=== PATIENT | female | born 2000 | race Caucasian/White ===

== ENCOUNTER 2021-11-02 08:50 | Outpatient (CLI) | payer BC, MEDICAID, SELFPAY ==
[2021-11-02] VITALS (18 sets, daily range): BP systolic 107; BP diastolic 62; PULSE 74–99; O2SAT 89–100; BMI 22.8
[2021-11-02 11:08] LABS: Mucous, Urine 0 SEEN /hpf (<or=2+); Red Blood Cells-Urine 0 SEEN /hpf (0-5)
[2021-11-02 11:09] LABS: Absolute Lymphocyte Count 3.18 X10^3/uL (0.83-4.51); Absolute Neutrophil Count 10.4 X10^3/uL (2.0-7.7); Basophil# 0.04 X10^3/uL; Basophil% 0.3 % (0-1); Eosinophil# 0.16 X10^3/uL; Eosinophils% 1.1 % (0-5); Hematocrit 34.7 % (37-47); Hemoglobin 11.5 g/dL (12.0-15.0); Lymphocyte # 3.18 X10^3/ul (0.83-4.51); Lymphocyte % 21.8 % (19-41); Mean Corp Hgb Conc 33.1 g/dL (32-36); Mean Corpuscular Hgb 26.6 pg (27.0-32.0); Mean Corpuscular Volume 80.3 fL (81-99); Mean Platelet Vol. 9.1 fl (6.2-12.0); Monocyte# 0.75 X10^3/uL; Monocyte% 5.1 % (0-10); NRBC Flagged by Analyzer 0 % (0-5); Neutrophil # 10.36 X10^3/uL (2.7-7.7); Platelet Count 393 K/mm3 (150-450); RBC Distribution Width CV 15.9 % (11.6-14.6); RBC Distribution Width SD 44.5 fl (35.1-43.9); Red Blood Count 4.32 M/mm3 (4.2-5.4); White Blood Count 14.6 K/mm3 (4.4-11.0)
[2021-11-02 11:14] LABS: Color, Urine Yellow (Yellow); Glucose, Dipstick Normal (Normal); Ketone-Dipstick Negative (Negative); Leukocyte Esterase-Dipstick 100 /ul (Negative); Nitrite-Dipstick Negative (Negative); Occult Blood-Urine Negative /ul (Negative); Protein-Dipstick Negative (Negative); Specific Gravity, Urine 1.015 (1.002-1.030); Urine Bilirubin Dipstick Negative (Negative); Urine Clarity Sl. Cloudy (Clear); Urine Urobilinogen Normal (Normal)
[2021-11-02 11:24] LABS: Amphetamine Urine VISTA NEGATIVE (<1000 ng/mL); Barbiturate Urine VISTA NEGATIVE (< 200 ng/mL); Benzodiazepine Urine VISTA NEGATIVE (< 200 ng/mL); Cocaine Urine VISTA NEGATIVE (< 300 ng/mL); Ecstacy Urine VISTA NEGATIVE (< 500 ng/mL); Methadone Urine VISTA NEGATIVE (< 300 ng/mL); PCP Urine VISTA NEGATIVE (< 25 ng/mL); THC Urine VISTA POSITIVE (< 50 ng/mL); Vista UDS pH Range 6
[2021-11-02 11:34] LABS: Bacteria 2+ /hpf (None Seen); Squamous Epithelial Cells - UA 0-5 SEEN /hpf (5-10); White Blood Cells 10-25 SEEN /hpf (0-5)
[2021-11-02 12:11] LABS: Rubella IgG Non-Reactive (Nonreactive); Syphilis Antibodies Non-reactive
[2021-11-02 12:38] LABS: HIV - WCH Non-Reactive (Nonreactive); Hepatitis B Surface Antigen Non-Reactive (Nonreactive); Hepatitis C Antibody Non-Reactive (Nonreactive)
--- NOTE | 2021-11-02 13:10 | OB.TRI.NOTE ---
HPI - General HPI Narrative RAVIN LEDEZMA, is a 21 F who presents or low back pain. she hasn't had any care and came in with low back pain after being admitted for drug rehab with the [facility] program. Patient denies any vaginal bleeding or loss of fluid admits good movement. She had an ultrasound several months ago that showed she was 7 weeks but she is unsure when that date was because she was using at the time. She had come up here from [place]. She has a history of previous . PFSH PFSH Allergy/AdvReac Type Severity Reaction Status Date / Time Penicillins Allergy Rash Verified 11/02/21 09:32 ROS Constitutional Constitutional: Reports systems reviewed and no addt'l complaints, except as documented and as per HPI ENT HEENT: Reports systems reviewed and no addt'l complaints, except as documented Cardiovascular Cardiovascular: Reports systems reviewed and no addt'l complaints, except as documented Respiratory/Chest Respiratory/Chest: Reports systems reviewed and no addt'l complaints, except as documented Gastrointestinal Gastrointestinal: Reports as per HPI Genitourinary Genitourinary: Reports as per HPI Musculoskeletal Musculoskeletal: Reports systems reviewed and no addt'l complaints, except as documented Integumentary Integumentary: Reports systems reviewed and no addt'l complaints, except as documented Neurologic Neurologic: Reports systems reviewed and no addt'l complaints, except as documented Physical Exam Const alert, oriented x3 and no apparent distress HEENT Head and Scalp: normocephalic and atraumatic Neck full ROM and no lymphadenopathy Chest inspection of chest normal Resp normal respiratory effort GI soft to palpation and non-tender GI Narrative: Fundal height 21 to 22 cm. NST FHR Rate Baby A Baseline: 140 Decelerations:: None NST Reactive:: Appropriate for gestational age FHR Category:: Category I Uterine Activity:: No regular Assessment & Plan (1) No care in current : QUALIFIERS: Trimester: second trimester Qualified Code(s): O09.32 - Supervision of with insufficient care, second trimester (2) Unsure of LMP (last menstrual period) as reason for ultrasound scan: COMMENT: limited bedside scan done. fu in office for formal. NOB labs drawn including tox. (3) 21 weeks gestation of : COMMENT: Based on limited bedside ultrasound by this physician. Formal scan unavailable in the hospital for several hours. Plan follow-up with [place] [employer] SERVICE FOOD SERVICE ATTENDANT due to agreement with [facility] organization. (4) Drug abuse during : (5) Back pain affecting : QUALIFIERS: Trimester: second trimester Qualified Code(s): O99.891 - Other specified diseases and conditions complicating ; M54.9 - Dorsalgia, unspecified COMMENT: urine mildly abnormal- macrobid script sent PLAN: see a/p comments Charges/Coding Multi Select Codes Visit Charges Office Visit/Consults: 69480 OV L3 New
[2021-11-02 13:35] LABS: Chlamydia Trachomatis by PCR Negative (Negative); Neisserai gonorrhoeae by PCR Negative (Negative); Probe Check PASS; Sample Adequacy Control PASS; Specimen Processing Control PASS
== END 2021-11-02 23:59 | disposition home or self-care (01) ==
LOC: WPOUT 09:01 → WP 09:02
PROVIDERS: Visit Provider Obstetrics & Gynecology
DX: O09.32 Supervision of pregnancy with insufficient antenatal care, second trimester (principal); O99.891 Other specified diseases and conditions complicating pregnancy; M54.50 Low back pain, unspecified; Z3A.21 21 weeks gestation of pregnancy
CPT/HCPCS: 36415; 59050; 80307; 81001; 85025; 86703; 86762; 86780; 86803; 86850; 86900; 86901; 87077; 87086; 87088; 87186; 87340; 87491; 87591; 99218; G0378

== ENCOUNTER 2021-11-10 05:30 | Outpatient (CLI) | payer BC, MEDICAID, SELFPAY ==
[2021-11-10 05:57] VITALS: BP 122/75; PULSE 94; TEMP 36.7; O2SAT 96
[2021-11-10 06:01] VITALS: BMI 24.7
--- NOTE | 2021-11-10 06:13 | OB.TRI.HP_ITS ---
HPI - General HPI Narrative RAVIN LEDEZMA, is a 21 F who presents for nasuea and vomiting, lower pelvic radiating to lower back. she denies any fevers. she was seen and diagnosed with a uti last week and hasn't taken her antibiotic yet. she denies any vaginal bleeding or contractions. she has a visit scheduled on the with beatrice global marketing coordinator PFS PFS Home Medications cephalexin 500 mg PO Q6 7 Days #28 cap 11/10/21 [Rx Last Taken Unknown] Allergy/AdvReac Type Severity Reaction Status Date / Time Penicillins Allergy Rash Verified 11/10/21 06:01 ROS Constitutional Constitutional: Reports systems reviewed and no addt'l complaints, except as documented Gastrointestinal Gastrointestinal: Reports as per HPI Physical Exam Const alert, oriented x3 and no apparent distress HEENT Head and Scalp: normocephalic and atraumatic Neck full ROM and no lymphadenopathy Chest inspection of chest normal Resp normal respiratory effort GI GI Narrative: no CVA tenderness gravid, abdomen nontender, AGA NST FHR Rate Baby A Baseline: 140 Decelerations:: None NST Reactive:: Yes Uterine Activity:: no regular Assessment & Plan (1) UTI in : COMMENT: 11/02- e coli. didn't take antibiotic. seen in triage again 11/10 for N/V, afebrile without CVA tenderness. given ceftriaxone and script for keflex. (2) Drug abuse during : PLAN: cbc ivfs antiemetics and tylenol given. IV dose of antibiotics started. dc back to 180 afterwards if stable and fu as OP. Charges/Coding Multi Select Codes Visit Charges Office Visit/Consults: 94102 OV L3 Est
[2021-11-10] MEDS: 0.9% Normal Saline 1,000 ML 999 ML IV (06:28)
[2021-11-10] MEDS: Ceftriaxone 1 GM/50 ML BAG IV (06:29)
[2021-11-10 06:30] LABS: Absolute Lymphocyte Count 1.44 X10^3/uL (0.83-4.51); Absolute Neutrophil Count 8.2 X10^3/uL (2.0-7.7); Basophil# 0.02 X10^3/uL; Basophil% 0.2 % (0-1); Eosinophil# 0.04 X10^3/uL; Eosinophils% 0.4 % (0-5); Hemoglobin 10.7 g/dL (12.0-15.0); Lymphocyte # 1.44 X10^3/ul (0.83-4.51); Lymphocyte % 13.9 % (19-41); Mean Corp Hgb Conc 32.4 g/dL (32-36); Mean Corpuscular Hgb 25.8 pg (27.0-32.0); Mean Corpuscular Volume 79.5 fL (81-99); Mean Platelet Vol. 9.1 fl (6.2-12.0); Monocyte# 0.64 X10^3/uL; Monocyte% 6.2 % (0-10); NRBC Flagged by Analyzer 0 % (0-5); Neutrophil # 8.15 X10^3/uL (2.7-7.7); Neutrophil % 78.7 % (47-70); Platelet Count 362 K/mm3 (150-450); RBC Distribution Width CV 16.2 % (11.6-14.6); RBC Distribution Width SD 45.9 fl (35.1-43.9); Red Blood Count 4.15 M/mm3 (4.2-5.4); White Blood Count 10.4 K/mm3 (4.4-11.0)
[2021-11-10 07:56] LABS: Color, Urine Yellow (Yellow); Glucose, Dipstick Normal (Normal); Ketone-Dipstick Negative (Negative); Leukocyte Esterase-Dipstick 500 /ul (Negative); Nitrite-Dipstick Positive (Negative); Occult Blood-Urine 10 /ul (Negative); Protein-Dipstick Negative (Negative); Urine Bilirubin Dipstick Negative (Negative); Urine Clarity Clear (Clear); Urine Urobilinogen Normal (Normal)
== END 2021-11-10 23:59 | disposition home or self-care (01) ==
LOC: WPOUT 05:32 → WP 05:33
PROVIDERS: Visit Provider Obstetrics & Gynecology
DX: O23.40 Unspecified infection of urinary tract in pregnancy, unspecified trimester (principal); F19.19 Other psychoactive substance abuse with unspecified psychoactive substance-induced disorder; O99.320 Drug use complicating pregnancy, unspecified trimester; N39.0 Urinary tract infection, site not specified; Z3A.00 Weeks of gestation of pregnancy not specified
CPT/HCPCS: 36415; 59050; 81002; 85025; 87077; 87086; 87088; 87186; 96365; 99218; J7030; G0378

== ENCOUNTER 2021-11-20 15:08 | Outpatient (CLI) | payer BC, MEDICAID, SELFPAY ==
[2021-11-20 15:45] LABS: Absolute Neutrophil Count 7.2 X10^3/uL (2.0-7.7); Basophil# 0.04 X10^3/uL; Basophil% 0.4 % (0-1); Eosinophil# 0.04 X10^3/uL; Eosinophils% 0.4 % (0-5); Hematocrit 33.3 % (37-47); Hemoglobin 10.7 g/dL (12.0-15.0); Lymphocyte % 30.2 % (19-41); Mean Corp Hgb Conc 32.1 g/dL (32-36); Mean Corpuscular Hgb 24.9 pg (27.0-32.0); Mean Corpuscular Volume 77.6 fL (81-99); Mean Platelet Vol. 9.3 fl (6.2-12.0); Monocyte# 0.55 X10^3/uL; Monocyte% 4.9 % (0-10); NRBC Flagged by Analyzer 0 % (0-5); Neutrophil # 7.16 X10^3/uL (2.7-7.7); Neutrophil % 63.6 % (47-70); Platelet Count 437 K/mm3 (150-450); RBC Distribution Width CV 16.1 % (11.6-14.6); RBC Distribution Width SD 45.2 fl (35.1-43.9); Red Blood Count 4.29 M/mm3 (4.2-5.4); White Blood Count 11.3 K/mm3 (4.4-11.0)
[2021-11-20 16:21] LABS: Amphetamine Urine VISTA NEGATIVE (<1000 ng/mL); Barbiturate Urine VISTA NEGATIVE (< 200 ng/mL); Benzodiazepine Urine VISTA NEGATIVE (< 200 ng/mL); Cocaine Urine VISTA NEGATIVE (< 300 ng/mL); Ecstacy Urine VISTA NEGATIVE (< 500 ng/mL); Methadone Urine VISTA NEGATIVE (< 300 ng/mL); PCP Urine VISTA NEGATIVE (< 25 ng/mL); THC Urine VISTA NEGATIVE (< 50 ng/mL); Vista UDS pH Range 6
[2021-11-21 09:25] LABS: HIV - WCH Non-Reactive (Nonreactive); Hepatitis B Surface Antigen Non-Reactive (Nonreactive); Hepatitis C Antibody Non-Reactive (Nonreactive); Rubella IgG Non-Reactive (Nonreactive); Syphilis Antibodies Non-reactive
[2021-11-22 21:07] LABS: Chlamydia By Nucleic Acid AMP Negative (Negative)
[2021-11-22 21:16] LABS: Gonococcus By Nucleic Acid AMP Negative (Negative)
[2021-11-28 14:43] LABS: HPV Reflexed? NOT INDICATED
== END 2021-11-20 23:59 | disposition home or self-care (01) ==
LOC: WOBLAB 15:11
PROVIDERS: Visit Provider Obstetrics & Gynecology
DX: Z34.82 Encounter for supervision of other normal pregnancy, second trimester (principal)
CPT/HCPCS: 36415; 80307; 85025; 86703; 86762; 86780; 86803; 87086; 87088; 87186; 87340; 87491; 87591; 88175; G0145

== ENCOUNTER 2021-12-18 10:21 | Outpatient (CLI) | payer BC, MEDICAID, SELFPAY ==
[2021-12-18 10:57] LABS: Glucose Challenge Gest 1H 50g 86 mg/dL (70-140)
== END 2021-12-18 23:59 | disposition home or self-care (01) ==
PROVIDERS: Visit Provider Obstetrics & Gynecology
DX: Z34.83 Encounter for supervision of other normal pregnancy, third trimester (principal)
CPT/HCPCS: 36415; 82950; 86850

== ENCOUNTER 2021-12-28 02:15 | Outpatient (CLI) | payer BC, MEDICAID, SELFPAY ==
[2021-12-28] VITALS (34 sets, daily range): BP systolic 82–120; BP diastolic 47–77; PULSE 63–126; RESP 18; TEMP 36.1–37.2; O2SAT 87–100; BMI 24.7
[2021-12-28] MEDS: Betamethasone/Betamethasone 30 MG/5 ML Vial 12 MG IM (03:12)
[2021-12-28 03:20] LABS: Absolute Lymphocyte Count 4.45 X10^3/uL (0.83-4.51); Absolute Neutrophil Count 5.3 X10^3/uL (2.0-7.7); Basophil# 0.06 X10^3/uL; Basophil% 0.6 % (0-1); Eosinophil# 0.15 X10^3/uL; Eosinophils% 1.4 % (0-5); Hematocrit 34.4 % (37-47); Hemoglobin 11.2 g/dL (12.0-15.0); Lymphocyte # 4.45 X10^3/ul (0.83-4.51); Lymphocyte % 41.5 % (19-41); Mean Corp Hgb Conc 32.6 g/dL (32-36); Mean Corpuscular Hgb 25.7 pg (27.0-32.0); Mean Corpuscular Volume 78.9 fL (81-99); Mean Platelet Vol. 9.6 fl (6.2-12.0); Monocyte# 0.72 X10^3/uL; Monocyte% 6.7 % (0-10); NRBC Flagged by Analyzer 0 % (0-5); Neutrophil # 5.31 X10^3/uL (2.7-7.7); Neutrophil % 49.5 % (47-70); Platelet Count 349 K/mm3 (150-450); RBC Distribution Width SD 48.8 fl (35.1-43.9); Red Blood Count 4.36 M/mm3 (4.2-5.4); White Blood Count 10.7 K/mm3 (4.4-11.0)
[2021-12-28 06:29] LABS: Amphetamine Urine VISTA NEGATIVE (<1000 ng/mL); Barbiturate Urine VISTA NEGATIVE (< 200 ng/mL); Benzodiazepine Urine VISTA NEGATIVE (< 200 ng/mL); Cocaine Urine VISTA NEGATIVE (< 300 ng/mL); Ecstacy Urine VISTA NEGATIVE (< 500 ng/mL); Methadone Urine VISTA NEGATIVE (< 300 ng/mL); PCP Urine VISTA NEGATIVE (< 25 ng/mL); THC Urine VISTA NEGATIVE (< 50 ng/mL); Vista UDS pH Range 6
--- NOTE | 2021-12-28 07:18 | PCM.HP.BLA ---
History and Physical Date of Admission: 12/28/21 Chief complaint: Vaginal bleeding History of present illness: 21-year-old G3, P1 at 29 weeks and 3 days with IGNACIO: 03/12/2022 by 23-week ultrasound arrived to triage with vaginal bleeding. Patient noted vaginal bleeding on underwear, called squad. Has had cramping that comes and goes, feels a cramping in her back. Has continued to notice some vaginal bleeding. Denies headache, visual changes, chest pain, shortness of breath, nausea vomiting, right upper quadrant pain. Patient states good movement. is complicated by late care at 23 weeks, heroin use currently living at [address] [place] [address], Rh-, marginal cord insertion Obstetric history: G1: SAB 09/2014 G2: 37-week primary section for IUGR GDM A 04/2019 G3: Current Past medical history: Heroin use Past surgical history: section, tonsils and adenoids Medications: vitamin Allergies: Penicillin Social history: History of heroin abuse, former smoker, denies alcohol use Family history: Denies history DVT or PE Review of systems: Besides above pertinent positives a full review of systems was performed and found to be negative Physical exam: Vitals: Blood pressure 93/53 pulse 78 General: Normal-appearing no acute distress HEENT: Normocephalic atraumatic no cervical of adenopathy Cardiac/respiratory: No use of accessory muscles, nonlabored breathing Abdomen: Soft, nontender, gravid Pelvic exam: Sterile speculum exam reveals no active bleeding, minimal amounts of blood in posterior vault, cervix closed thick and high Extremities: No peripheral edema normal peripheral pulses Psych: Normal affect normal demeanor nonpressured speech Bedside ultrasound: Cephalic, CORNEL within normal limits. No pathology noted Labs: White blood cell count 10.7 hemoglobin 11.2 hematocrit 34.4% platelets 349. Blood type B- antibody positive Assessment plan: 21-year-old G3, P1 at 29 weeks and 3 days arrives with vaginal bleeding. Evaluation within normal limits, cervix closed, no active bleeding. heart tones reassuring, toco quiet. Educated patient on findings, overall status appears to be stable outside of vaginal bleeding with no signs of labor. Concerning for possible chronic abruption needs prolonged monitoring and evaluation. Discussed case with Dr. Brando orellana [facility], agrees needs monitoring, accepted transport. Educated patient on discussion with Dr. Michaels and need for transport, agrees to transport to [facility]. Celestone given, mag for neuro protection started, vancomycin for unknown GBS status with penicillin allergy given. Rh-, recently given RhoGam 1 week prior, 12/17/2021. Patient to be transported to [facility]
[2021-12-28] MEDS: Lactated Ringers 1,000 ML 100 ML IV (07:35)
[2021-12-28] MEDS: Magnesium Sulfate 4gm/100mL 4 GM/100 ML IV.SOLN. IV (07:35)
[2021-12-28] MEDS: Magnesium Sulfate 20 GM/500 ML BAG IV (07:55)
== END 2021-12-28 23:59 | disposition home or self-care (01) ==
LOC: WPOUT 02:21 → WP 02:22
PROVIDERS: Visit Provider Obstetrics & Gynecology
DX: O46.93 Antepartum hemorrhage, unspecified, third trimester (principal); Z87.891 Personal history of nicotine dependence; Z3A.29 29 weeks gestation of pregnancy; Z79.899 Other long term (current) drug therapy
CPT/HCPCS: 96365; 96366; 36415; 59025; 59050; 80307; 85025; 86850; 86870; 86900; 86901; 90384; 96367; 96372; 99218; J7050; J7120; G0378; J0702; J2790

== ENCOUNTER → 2022-01-29 | Outpatient (CLI) | payer BC, MEDICAID, SELFPAY | END | disposition home or self-care (01) | PROVIDERS: Visit Provider Obstetrics & Gynecology | DX: Z11.3 Encounter for screening for infections with a predominantly sexual mode of transmission (principal) ==

== ENCOUNTER → 2022-02-12 | Outpatient (CLI) | payer BC, MEDICAID, SELFPAY | END | disposition home or self-care (01) | LOC: LABSPEC 12:18 | PROVIDERS: Visit Provider Obstetrics & Gynecology | DX: Z36.85 Encounter for antenatal screening for Streptococcus B (principal) | CPT/HCPCS: 87081 ==

== ENCOUNTER 2022-03-05 06:25 | Inpatient (IN) | payer BC, MEDICAID, SELFPAY ==
--- NOTE | 2022-03-04 14:37 | CASEMGMT ---
Social Work Labor and Delivery Late entry for phone call with Celi Del Castillo of [facility] on 02.28.2022: Received call from Celi Del Castillo from [facility] ([phone]) reporting need for notification of delivery of child to be born this admission. [facility] agency is reporting to be otherwise involved with this patient/mother of baby (MOB), for MOB's older child. [facility] has custody of the older child, and [facility] has filed a complaint for custody of infant to be delivered in February 2013. From conversation with [facility], there is concern for some exposure of infant to opiates during , with last admitted use by the MOB of heroin on 10.05.21. History of methamphetamine use as well. MOB reportedly went into a residential program and is now involved in outpatient programming. Per Celi, there is a court hearing on 03.04.2022, so there could be a determination by the supply chain engineer on complaint as early as 03.04.2022. Regardless of court decision on the , [facility] does request to be notified of 's . General update: Let BETTINA Del Castillo know that this business writer does regularly make referrals to children services when substance exposure in utero is known. Also educated BETTINA Del Castillo to hospital protocols for withdrawal monitoring in babies exposed to opiates in utero, is between 3-7 days, depending on type of exposure and when in the exposure occurred. Educated to Eat, Sleep, Console method of monitoring, which puts responsibility on the parents to be present and care for the child during the monitoring phase. Explored with BETTINA Del Castillo as to [facility] stance on MOB involvement with baby, should [facility] indeed received custody of baby. BETTINA Del Castillo reports that based on how MOB is doing now, would be in support of MOB being at hospital with baby for duration of baby's hospital stay, so long as MOB is adhering to rules and protocols of the hospital. Celi can be reached at [phone], and in off hours the on-call center support consultant can be reached via the [facility]'s Department. Note placed in [facility] record on the WP requesting a SW consult at delivery, as consideration for drug screens at delivery. Plan: Social work will follow and assist this MOB and during delivery admission. Collaboration with unit staffing and [facility]. -FILIPE Gilbert, OIL BURNER MECHANIC
[2022-03-05] VITALS (18 sets, daily range): BP systolic 91–116; BP diastolic 50–75; PULSE 71–114; RESP 16–18; TEMP 36.1–37; O2SAT 97–100; BMI 26.7
[2022-03-05] MEDS: Lactated Ringers 1,000 ML 999 ML IV (06:45)
[2022-03-05 07:15] LABS: Absolute Lymphocyte Count 3.58 X10^3/uL (0.83-4.51); Absolute Neutrophil Count 4.4 X10^3/uL (2.0-7.7); Basophil# 0.03 X10^3/uL; Basophil% 0.3 % (0-1); Eosinophil# 0.09 X10^3/uL; Hematocrit 36.4 % (37-47); Hemoglobin 11.8 g/dL (12.0-15.0); Lymphocyte # 3.58 X10^3/ul (0.83-4.51); Lymphocyte % 40.9 % (19-41); Mean Corp Hgb Conc 32.4 g/dL (32-36); Mean Corpuscular Hgb 24.6 pg (27.0-32.0); Mean Corpuscular Volume 75.8 fL (81-99); Mean Platelet Vol. 10.4 fl (6.2-12.0); Monocyte# 0.68 X10^3/uL; Monocyte% 7.8 % (0-10); NRBC Flagged by Analyzer 0 % (0-5); Neutrophil # 4.35 X10^3/uL (2.7-7.7); Neutrophil % 49.7 % (47-70); Platelet Count 294 K/mm3 (150-450); RBC Distribution Width CV 14.1 % (11.6-14.6); RBC Distribution Width SD 38.2 fl (35.1-43.9); White Blood Count 8.8 K/mm3 (4.4-11.0)
[2022-03-05] MEDS: Acetaminophen 500 MG Tablet 1000 MG PO ×3 (07:18→19:57)
[2022-03-05] MEDS: Sodium Citrate/Citric Acid 30 ML UDC PO (07:18)
[2022-03-05 07:25] LABS: BUP Internal Control LINE = VALID (VALID); Buprenorphine Drug Screen Negative (<10 ng/mL)
[2022-03-05 07:37] LABS: Amphetamine Urine VISTA NEGATIVE (<1000 ng/mL); Barbiturate Urine VISTA NEGATIVE (< 200 ng/mL); Benzodiazepine Urine VISTA NEGATIVE (< 200 ng/mL); Cocaine Urine VISTA NEGATIVE (< 300 ng/mL); Ecstacy Urine VISTA NEGATIVE (< 500 ng/mL); Methadone Urine VISTA NEGATIVE (< 300 ng/mL); PCP Urine VISTA NEGATIVE (< 25 ng/mL); THC Urine VISTA NEGATIVE (< 50 ng/mL); Vista UDS pH Range 7
--- NOTE | 2022-03-05 07:43 | PCM.HP.BLA ---
History and Physical Date of Admission: 03/05/22 Chief complaint: Repeat section at term History present illness: 21-year-old G3, P1 at 39 weeks and 0 days with IGNACIO 03/12/2022 arrives for repeat section. Denies headache, visual changes, chest pain, shortness of breath, nausea vomit, right upper quadrant pain. Patient states good movement. is complicated by history of heroin use, history of gestational diabetes, marginal cord insertion, Rh- Obstetrical history: G1: SAB G2: 37-week primary section GDM A G3: Current Past medical history: None Medications: vitamin Past surgical history: Tonsils and adenoids, section Allergies: Penicillin Family history: Denies history DVT or PE Social history: History of heroin use, denies smoking or alcohol use Review of systems: Besides above pertinent positives a full review of systems was performed and found to be negative Physical exam: Blood pressure 116/75 pulse 76 respiratory rate 16 SPO2 98% on room air General: Normal-appearing no acute distress HEENT: Normocephalic atraumatic no cervical of adenopathy Cardiac/respiratory: No use of excess muscles, nonlabored breathing Abdomen: Soft, nontender, gravid Extremities: No peripheral edema normal peripheral pulses Psych: Normal affect normal demeanor nonpressured speech Labs: White blood cell count 8.8, hemoglobin 11.8, hematocrit 36.4%, platelets 294. Assessment plan: 21-year-old G3, P1 at 39 weeks and 0 days for repeat section at term Admit labor and delivery CEFM Rh-: We will evaluate for RhoGAM Routine orders Anesthesia to see
[2022-03-05] MEDS: Lactated Ringers 1,000 ML 150 ML IV (07:45)
[2022-03-05] MEDS: Cefazolin 2 GM in 0.9% Normal Saline 100 ML IV (08:00)
--- NOTE | 2022-03-05 08:39 | OP.PCM_ITS ---
Details Operative Information Date of Procedure: 03/05/22 Pre-Operative Diagnosis: Term, history of section Post-Operative Diagnosis: Term, history of section Findings Description of Procedure: Procedure: Repeat low transverse section Via Pfannenstiel incision Surgeon: Kike Calvin MD Anesthesia: Spinal EBL: 600 cc IV fluids: 800 cc Urine output: 25 cc Complications: None Specimen: None Findings: Female in vertex position Apgars 8/9. Normal uterus, tubes, and ovaries. Consent: Patient arrives with term and history of section need of repeat section Via Pfannenstiel incision. Patient understands risk of the procedure include but are not limited to visceral or vascular injury, prolonged hospitalization, blood loss and need for transfusion, reoperation. Patient stated understanding and wished to proceed. All questions were answered and consent was signed Procedure: Patient was brought back to the OR where spinal anesthesia was found to be adequate. 2 g of Ancef were given for infection prophylaxis. Patient was prepared and draped in a supine position with leftward tilt. A Pfannenstiel incision was made at the skin with a scalpel. The incision was carried down to the fascia with a scalpel. The fascia was excised and extended laterally. Inferior aspect of the fascia was grasped and the underlying rectus and pyrami krystina muscle were dissected off sharply with Benito scissors. In a similar aspect the superior aspect of the fascia was grasped and the underlying rectus muscle was dissected off sharply. Rectus muscle was dissected at the midline down to the level of pubic symphysis. Preperitoneal fatty tissue was noted and peritoneum was entered bluntly. Peritoneum was extended superiorly and inferiorly with good visualization of bladder. Bladder blade was inserted and vesicouterine peritoneum was identified. Low transverse hysterotomy was made. Hand was placed in the incision and gentle fundal pressure was applied once the bladder blade was removed and the head was brought into the incision. Head and shoulders were delivered with ease. Cord was cut and clamped. Baby handed off to nursing. Placenta was delivered via manual extraction. IV oxytocin was initiated in order to facilitate uterine contractions. Uterus was exteriorized and wiped out with dry laparotomy sponge in order to remove remaining placental membranes. Uterus was closed in a continuous running fashion. [id number]'s were used for hemostasis. Good hemostasis was noted. Uterus was placed back in the abdominal cavity and incision was reinspected, good hemostasis was noted. Fascia was closed in a continuous running fashion with PDS. Subcutaneous irrigation was performed, good hemostasis was noted. Skin was closed in subcuticular fashion. All counts were correct x2. Patient tolerated procedure well and was brought to recovery in stable condition.
[2022-03-05] MEDS: Oxytocin 30 units/NS 500 ml 30 UNITS/500 ML IV.SOLN 167 UNITS IV (09:00)
[2022-03-05] MEDS: Ketorolac 30 MG/ML Syringe IV ×3 (10:30→22:17)
[2022-03-05] MEDS: Nalbuphine 10 MG/ML Ampul 5 MG IV (11:26)
[2022-03-05] MEDS: Lactated Ringers 1,000 ML 100 ML IV (12:24)
[2022-03-05] MEDS: DiphenhydrAMINE 25 MG Capsule PO (18:50)
[2022-03-05] MEDS: 0.9% Saline Lock 10 ML Syringe IV ×2 (19:57→22:18)
[2022-03-05] MEDS: Enoxaparin 40 MG/0.4 ML Syringe SC (19:57)
--- NOTE | 2022-03-05 23:20 | NURSING ---
straight cath used to empty bladder. removed after urine done draining.
[2022-03-06] MEDS: Acetaminophen 500 MG Tablet 1000 MG PO ×4 (00:39→20:01)
[2022-03-06 03:05] VITALS: BP 89/47; PULSE 64; RESP 16; TEMP 36.5
[2022-03-06 04:15] VITALS: BP 84/51
[2022-03-06] MEDS: Ketorolac 30 MG/ML Syringe IV (04:55)
[2022-03-06] MEDS: 0.9% Saline Lock 10 ML Syringe IV ×2 (04:55→07:00)
--- NOTE | 2022-03-06 06:10 | NURSING ---
0430 late entry d/t the [facility] downtime. at 0430, this RN called dr bc antonio to update her on pt vital signs and current urine output situation. around 0305, BP 89/47 and this RN went into room an hour later and BP 84/51. pt asymptomatic and pulse within 60s-80s. pt denies feeling dizzy or lightheaded. pt due to get toradol, but pt unable to void. initial kidd cath removed per barrington RN around 1700 03/05. pt unable to void within 6 hours, so straight cath completed at 2315 for 200 cc. pt now unable to void again after another 6 hours. this RN inquiring about whether or not pt needs a fluid bolus, kidd cath placed, and whether or not to administer scheduled toradol dose. [facility] states to place kidd and keep it in for day shift, no bolus needed at this time, and to give toradol if urine is draining adequately. charge master coordinator updated on plan of care.
[2022-03-06] MEDS: Nalbuphine 10 MG/ML Ampul 5 MG IV (06:59)
[2022-03-06 08:25] VITALS: BP 91/55; PULSE 70; RESP 18; TEMP 36.2; O2SAT 100
--- NOTE | 2022-03-06 09:15 | PCM.PN.OB ---
Subjective Subjective Patient without complaints. Tolerating diet well. Positive flatus. Denies any orthostatic changes. Minimal vaginal bleeding reported. Objective Data Objective Data Good urine output with Vaca reinserted due to urinary retention. Hemoglobin 7.1. Vital Signs: Vital Signs Temp Pulse Resp BP Pulse Ox 97.7 F L 64 16 84/51 L 99 03/06/22 03:05 03/06/22 03:05 03/06/22 03:05 03/06/22 04:15 03/05/22 20:07 Oxygen Delivery Method Room Air Weight: 151 lb 3.2 oz Body Mass Index (BMI) 26.7 Intake & Output: Intake and Output for Last 24 Hours 03/04/22 03/05/22 03/06/22 23:59 23:59 23:59 Intake Total 3552 / 3552 1000 / 1000 Output Total 850 / 850 625 / 625 Balance 2702 / 2702 375 / 375 Lab / Micro Data Result Diagrams: 03/05/22 06:45 Labs: Laboratory Results - last 24 hr 03/05/22 11:15: Screen NEGATIVE, Baby's Blood Type B POSITIVE, Baby's ALFA NEGATIVE Micro: Microbiology 03/05/22 06:45 Nasal Secretion SARS-CoV-2 Antigen (Rapid) - Final Assessment & Plan (1) S/P repeat low transverse : PLAN: Plan Doing well postoperative day #1 status post repeat . No orthostatic changes with hemoglobin 7.1 and minimal vaginal bleeding. Will discontinue Vaca this a.m. and do a voiding trial. We will repeat CBC tomorrow. Baby needs to stay 5 days per patient. Continuing present care.
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
[2022-03-06] MEDS: Senna/Docusate Sodium 1 Tablet PO (11:32)
[2022-03-06] MEDS: Enoxaparin 40 MG/0.4 ML Syringe SC (11:32)
[2022-03-06 11:43] LABS: Hemoglobin 7.1 g/dL (12.0-15.0); Red Blood Count 2.82 M/mm3 (4.2-5.4); White Blood Count 10.3 K/mm3 (4.4-11.0)
[2022-03-06 11:44] LABS: Mean Corp Hgb Conc 30.9 g/dL (32-36); Mean Corpuscular Hgb 25.2 pg (27.0-32.0); Mean Corpuscular Volume 81.6 fL (81-99); Mean Platelet Vol. 10.8 fl (6.2-12.0); Platelet Count 224 K/mm3 (150-450); RBC Distribution Width CV 14.3 % (11.6-14.6); RBC Distribution Width SD 41.5 fl (35.1-43.9)
--- NOTE | 2022-03-06 12:00 | CASEMGMT ---
Social Work Labor and Delivery This fiction and nonfiction writer prose had spoken with the discharge timeframe for baby, and anticipate Friday as the day of discharge. Spoke with Celi at [facility]. Provided update. Discussed discharge timeframe. Plan: Will continue to follow and assist. Refer to prior social work documentation for details of plans and social work interactions. -FILIPE Gilbert, SWEATBAND PERFORATOR
[2022-03-06] MEDS: Ibuprofen 600 MG Tablet PO ×2 (12:23→18:25)
[2022-03-06 14:06] VITALS: BP 82/46; PULSE 95; RESP 18; TEMP 36.2; O2SAT 100
--- NOTE | 2022-03-06 17:45 | NURSING ---
Pt declines MMR vaccine. Pt aware of rubella nonimmune status, education provided.
[2022-03-06 19:56] VITALS: BP 100/61; PULSE 100; RESP 18; TEMP 36.2; O2SAT 99
[2022-03-07] VITALS (10 sets, daily range): BP systolic 94–111; BP diastolic 54–81; PULSE 86–122; RESP 16–18; TEMP 36.1–37.2; O2SAT 96–99
[2022-03-07] MEDS: Ibuprofen 600 MG Tablet PO ×4 (01:22→18:50)
[2022-03-07] MEDS: Acetaminophen 500 MG Tablet 1000 MG PO ×4 (02:32→20:29)
[2022-03-07 06:24] LABS: Absolute Lymphocyte Count 2.88 X10^3/uL (0.83-4.51); Absolute Neutrophil Count 9.5 X10^3/uL (2.0-7.7); Basophil# 0.04 X10^3/uL; Basophil% 0.3 % (0-1); Eosinophil# 0.08 X10^3/uL; Eosinophils% 0.6 % (0-5); Hematocrit 19.8 % (37-47); Hemoglobin 6.2 g/dL (12.0-15.0); Lymphocyte # 2.88 X10^3/ul (0.83-4.51); Lymphocyte % 21.7 % (19-41); Mean Corp Hgb Conc 31.3 g/dL (32-36); Mean Corpuscular Hgb 25.1 pg (27.0-32.0); Mean Corpuscular Volume 80.2 fL (81-99); Mean Platelet Vol. 10.4 fl (6.2-12.0); Monocyte# 0.72 X10^3/uL; Monocyte% 5.4 % (0-10); NRBC Flagged by Analyzer 0 % (0-5); Neutrophil % 71.5 % (47-70); Platelet Count 249 K/mm3 (150-450); RBC Distribution Width CV 14.5 % (11.6-14.6); RBC Distribution Width SD 41.9 fl (35.1-43.9); Red Blood Count 2.47 M/mm3 (4.2-5.4); White Blood Count 13.3 K/mm3 (4.4-11.0)
--- NOTE | 2022-03-07 07:41 | NURSING ---
Bruising noted above mepliex dressing near incision site. Area palpates soft with minimal tenderness reported by patient. Will notify OB of findings for further assessment.
[2022-03-07] MEDS: 0.9% Saline Lock 10 ML Syringe IV ×3 (07:43→08:57)
--- NOTE | 2022-03-07 08:03 | PCM.PN.OB ---
Subjective Subjective No overnight complaints. Denies dizziness, weakness, chest pain, shortness of breath Objective Data Objective Data Vital Signs: Vital Signs Temp Pulse Resp BP Pulse Ox 97.6 F L 89 16 105/72 99 03/07/22 07:37 03/07/22 07:37 03/07/22 07:37 03/07/22 07:37 03/07/22 07:37 Oxygen Delivery Method Room Air Weight: 151 lb 3.2 oz Body Mass Index (BMI) 26.7 Intake & Output: Intake and Output for Last 24 Hours 03/05/22 03/06/22 03/07/22 23:59 23:59 23:59 Intake Total 3552 / 3552 1000 / 1000 Output Total 850 / 850 2125 / 2125 Balance 2702 / 2702 -1125 / -1125 Lab / Micro Data Result Diagrams: 03/07/22 06:15 Labs: Laboratory Results - last 24 hr 03/06/22 04:45: WBC 10.3, RBC 2.82 L, Hgb 7.1 L, Hct 23.0 L, MCV 81.6 D, MCH 25.2 L, MCHC 30.9 L, RDW Std Deviation 41.5, RDW Coeff of [place] 14.3, Plt Count 224, MPV 10.8 03/07/22 06:15: WBC 13.3 H, RBC 2.47 L, Hgb 6.2 L, Hct 19.8 L, MCV 80.2 L, MCH 25.1 L, MCHC 31.3 L, RDW Std Deviation 41.9, RDW Coeff of [place] 14.5, Plt Count 249, MPV 10.4, Immature Gran % (Auto) 0.500, Neut % (Auto) 71.5 H, Lymph % (Auto) 21.7, [place] % (Auto) 5.4, Eos % (Auto) 0.6, Baso % (Auto) 0.3, Absolute Neuts (auto) 9.5 H, Absolute Lymphs (auto) 2.88, Nucleated RBC % 0 Micro: Microbiology 03/05/22 06:45 Nasal Secretion SARS-CoV-2 Antigen (Rapid) - Final Physical Exam Const alert, oriented x3, no apparent distress, average body habitus, healthy appearing and well nourished HEENT normocephalic and moist oral mucous membranes Eyes PERRL Neck full ROM Resp normal respiratory effort, no retractions and no use of accessory muscles GI GI Narrative: Soft, nontender, bandage clean dry and intact Psych mental status grossly normal, affect normal, speech normal and activity/motor behavior normal Assessment & Plan (1) Delivery by section: PLAN: Plan Postop day 2 status post repeat section. Patient overall asymptomatic with hemoglobin 6.2. Orthostatic vital signs ordered. Venofer for today. Overall with patient asymptomatic and vital signs stable assuming normal orthostatic vital signs we will continue to monitor and transfuse if needed.
[2022-03-07] MEDS: oxyCODONE 5 MG Tablet PO ×3 (08:52→18:50)
--- NOTE | 2022-03-07 09:10 | NURSING ---
Spoke with CHANTALE Marsh to make aware that Oxyir was being added to patients orders for pain control. Informed that safe sleep was reviewed with patient. Patient keeping purse and belongings close in bed continuously. Salma to see patient again today.
[2022-03-07] MEDS: Enoxaparin 40 MG/0.4 ML Syringe SC (10:07)
[2022-03-07] MEDS: Senna/Docusate Sodium 1 Tablet PO (10:07)
--- NOTE | 2022-03-07 16:30 | CASEMGMT ---
Social Work Labor and Delivery Records reviewed and spoke with Erma POLO today for an update. RN has noted MOB to be sleepy and has reinforced safe sleeping with MOB. RN reported the MOB has voiced being painful, and physician did order narcotics to help manage pain levels. Eat, Sleep, Console numbers have been 3's, so appear that baby is doing well at this time. Spoke with Celi Del Castillo at [facility]. Reviewed reports by RN and documentation by RN regarding nursing observations. Reported that MOB appears to be handling the baby well, but has seemed to be sleepy, needing some safe sleeping education. As per the [place] Act and need to report exposure of substances in utero this tech writer did report to Celi positive maternal drug screen in for marijuana, but subsequent testing negative, including at delivery. Brief maternal and histories provided. Reviewed weekend discharge for baby. As per court order someone from [facility] will need to be present at discharge. Anticipate [facility] nutrition representative, plus the foster mother to be present at time of discharge. Plan: MOB will discharge to home when medically stable, but plans to remain at hospital caring for baby until baby is ready for discharge this weekend. Plan to see MOB on 03.08.2022. Baby to discharge to care of [facility], with foster mother also being present at discharge. Social work will continue to follow and assist. -FILIPE Gilbert, NBA
[2022-03-08] MEDS: 0.9% Normal Saline 1,000 ML 30 ML IV (00:02)
[2022-03-08 00:11] VITALS: BP 108/74; PULSE 118; RESP 18; TEMP 36.6; O2SAT 97
[2022-03-08] MEDS: oxyCODONE 5 MG Tablet PO ×4 (00:58→18:58)
[2022-03-08] MEDS: 0.9% Saline Lock 10 ML Syringe IV ×2 (00:58→10:02)
[2022-03-08] MEDS: Ibuprofen 600 MG Tablet PO ×4 (00:58→18:57)
[2022-03-08] MEDS: Acetaminophen 500 MG Tablet 1000 MG PO ×3 (02:12→15:20)
[2022-03-08 04:25] VITALS: BP 110/70; PULSE 114; RESP 16; TEMP 36.2; O2SAT 98
[2022-03-08 05:40] LABS: Hematocrit 23.3 % (37-47); Hemoglobin 7.3 g/dL (12.0-15.0); Mean Corp Hgb Conc 31.3 g/dL (32-36); Mean Corpuscular Hgb 25.3 pg (27.0-32.0); Mean Corpuscular Volume 80.9 fL (81-99); Mean Platelet Vol. 9.7 fl (6.2-12.0); Platelet Count 268 K/mm3 (150-450); RBC Distribution Width CV 14.8 % (11.6-14.6); RBC Distribution Width SD 43.5 fl (35.1-43.9); Red Blood Count 2.88 M/mm3 (4.2-5.4); White Blood Count 11.5 K/mm3 (4.4-11.0)
--- NOTE | 2022-03-08 07:46 | PCM.PN.OB ---
Subjective Subjective No overnight complaints. Patient denies weakness, dizziness, chest pain, shortness of breath. Ambulating with ease Objective Data Objective Data Vital Signs: Vital Signs Temp Pulse Resp BP Pulse Ox 97.1 F L 114 H 16 110/70 98 03/08/22 04:25 03/08/22 04:25 03/08/22 04:25 03/08/22 04:25 03/08/22 04:25 Oxygen Delivery Method Room Air Weight: 151 lb 3.2 oz Body Mass Index (BMI) 26.7 Intake & Output: Intake and Output for Last 24 Hours 03/06/22 03/07/22 03/08/22 23:59 23:59 23:59 Intake Total 1000 / 1000 110 / 110 424 / 424 Output Total 2125 / 2125 Balance -1125 / -1125 110 / 110 424 / 424 Lab / Micro Data Result Diagrams: 03/08/22 05:30 Labs: Laboratory Results - last 24 hr 03/05/22 06:45: Crossmatch See Detail 03/05/22 07:15: Miscellaneous Test 03/08/22 05:30: WBC 11.5 H, RBC 2.88 L, Hgb 7.3 L, Hct 23.3 L, MCV 80.9 L, MCH 25.3 L, MCHC 31.3 L, RDW Std Deviation 43.5, RDW Coeff of [place] 14.8 H, Plt Count 268, MPV 9.7 Micro: Microbiology 03/05/22 06:45 Nasal Secretion SARS-CoV-2 Antigen (Rapid) - Final Physical Exam Const alert, oriented x3, no apparent distress, average body habitus, healthy appearing and well nourished HEENT normocephalic Eyes PERRL Neck full ROM Resp normal respiratory effort, no retractions and no use of accessory muscles GI GI Narrative: Soft, nontender, uterus firm and below umbilicus. Bandage clean dry and intact, mild bruising around bandage Extremity normal to inspection, full ROM and no clubbing, cyanosis or edema Neuro moves all extremities Psych mental status grossly normal, affect normal, speech normal and activity/motor behavior normal Assessment & Plan (1) Delivery by section: PLAN: Postop day 3 status post repeat section at term. Breast-feeding. Acute blood loss anemia status post 1 unit packed red blood cells and Venofer. Patient asymptomatic, ambulating with ease. Hemoglobin stable. We will continue to monitor
[2022-03-08 07:50] VITALS: BP 91/58; PULSE 94; RESP 16; TEMP 35.3; O2SAT 97
[2022-03-08] MEDS: Enoxaparin 40 MG/0.4 ML Syringe SC (09:54)
[2022-03-08] MEDS: Senna/Docusate Sodium 1 Tablet PO (09:55)
[2022-03-08 12:14] LABS: Absolute Lymphocyte Count 3.16 X10^3/uL (0.83-4.51); Absolute Neutrophil Count 5.7 X10^3/uL (2.0-7.7); Basophil# 0.03 X10^3/uL; Basophil% 0.3 % (0-1); Eosinophil# 0.25 X10^3/uL; Eosinophils% 2.6 % (0-5); Hematocrit 22.6 % (37-47); Hemoglobin 7.1 g/dL (12.0-15.0); Lymphocyte # 3.16 X10^3/ul (0.83-4.51); Lymphocyte % 32.6 % (19-41); Mean Corp Hgb Conc 31.4 g/dL (32-36); Mean Corpuscular Hgb 25.4 pg (27.0-32.0); Mean Corpuscular Volume 80.7 fL (81-99); Mean Platelet Vol. 9.4 fl (6.2-12.0); Monocyte# 0.48 X10^3/uL; Monocyte% 4.9 % (0-10); NRBC Flagged by Analyzer 0.2 % (0-5); Neutrophil # 5.72 X10^3/uL (2.7-7.7); Platelet Count 262 K/mm3 (150-450); RBC Distribution Width CV 14.6 % (11.6-14.6); RBC Distribution Width SD 43.2 fl (35.1-43.9); White Blood Count 9.7 K/mm3 (4.4-11.0)
[2022-03-08 13:56] VITALS: BP 101/65; PULSE 110; RESP 18; TEMP 36.4; O2SAT 97
[2022-03-08 17:23] VITALS: BP 94/67; PULSE 109; RESP 16; TEMP 36.2; O2SAT 98
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
--- NOTE | 2022-03-08 19:46 | PCM.DC.BLA ---
Discharge Summary Date of Admission: 03/05/22 Date of Discharge: 03/08/22 Summary: Patient arrived on 03/05/2022 for scheduled repeat section at term. Postop day 1 patient noted to have acute blood loss anemia. Postop day 2 patient given IV Venofer and 1 unit of packed red blood cells transfused. Patient overall remained stable hemoglobin stabilized and patient was discharged to [facility] status on 03/08/2022 Meaningful Use Info Meaningful Use Diagnoses (Choose all that apply): None applicable Discharge Plan Admission Admit Date/Time: 03/05/22 06:25 Primary Reason for Your Visit: Repeat C/S Attending Provider: Kike Calvin Primary Care Provider: Yasmine Rosario,Liz Primary Instructions Patient Instructions: After a Additional Instructions / Restrictions: Regular diet. Okay to shower. No driving on narcotics. No intercourse for 4 to 6 weeks. No lifting over 25 pounds for 2 to 3 weeks. No tub baths for 2 weeks. Call if fevers, chills, chest pain, shortness of breath, dizziness, weakness. Follow-up 1 week postoperatively Discharge Orders/Prescriptions Prescriptions: New oxycodone 5 mg capsule 5 mg PO Q6H PRN (Reason: pain (scale score 7-10)) 4 Days Qty: 16 0RF Referrals / Follow Up: Care Physician,No Primary [Primary Care Provider] - Disposition Disposition (needs filled in before D/C Order can be placed): Home, Self Care
== END 2022-03-08 19:00 | disposition home or self-care (01) | DRG 540 ==
PROVIDERS: Obstetrics & Gynecology; Admitting Provider Obstetrics & Gynecology; Visit Provider Obstetrics & Gynecology
PROC: 10D00Z1 Extraction of Products of Conception, Low, Open Approach (ICD-10-PCS; CPT 59514; principal; 2022-03-05 07:15)
DX: O34.211 Maternal care for low transverse scar from previous cesarean delivery (principal); D62 Acute posthemorrhagic anemia; F11.21 Opioid dependence, in remission; O99.02 Anemia complicating childbirth; Z3A.39 39 weeks gestation of pregnancy; Z37.0 Single live birth; O99.324 Drug use complicating childbirth
CPT/HCPCS: 59050; 80307; 85025; 85027; 85461; 86850; 86900; 86901; 86920; 87426; 90384; 99218; 99406; J1756; J7030; J7120; P9016; A4216; G0378; J2405; J2790

== ENCOUNTER → 2022-03-29 | Outpatient (CLI) | payer BC, MEDICAID, SELFPAY ==
[2022-03-29 12:32] LABS: Hematocrit 41.3 % (37-47); Hemoglobin 12.7 g/dL (12.0-15.0)
== END | disposition home or self-care (01) ==
LOC: WOBLAB 11:58
PROVIDERS: Visit Provider Obstetrics & Gynecology
DX: D64.9 Anemia, unspecified (principal)
CPT/HCPCS: 36415; 85014; 85018

== ENCOUNTER 2023-05-08 18:41 | Emergency (ER) | payer BC, MEDICAID, SELFPAY ==
[2023-05-08 18:43] VITALS: BP 105/71; PULSE 87; RESP 18; TEMP 36.6; O2SAT 96; BMI 26.9
--- NOTE | 2023-05-08 22:15 | EDS_ITS ---
HPI HPI - Female History of Present Illness Chief Complaint: Female C/O Informant: patient Narrative Narrative: 22-year-old female presenting to the emergency room at 13 weeks gestation Ab0 with concern for pelvic cramping and vaginal bleeding. Patient states that her CONDITIONING ROOM WORKER is in Mg. Yesterday she underwent cervical biopsies. She states that today she has had some pelvic cramping and this evening went to the bathroom and passed a grayish colored clot that smelled like old blood she states that she called the on-call record pressman and was sent to the emergency room. No fevers. This has otherwise been unremarkable. [facility] Medical History Gestational diabetes History of prior with IUGR MRSA infection Stillborn, normal Home Medications vit no.95-ferrous fumarate 28 mg-folic acid 800 mcg tablet () 1 tab PO DAILY 05/08/23 [History Last Taken Unknown] Allergy/AdvReac Type Severity Reaction Status Date / Time Penicillins Allergy Rash Verified 05/08/23 18:43 Surgical History Previous section Social History Smoking Status: Former smoker ROS ROS ED Constitutional Constitutional ED: Denies chills or weight loss Eyes Eyes: Denies change in vision or diplopia ENT ENT ED: Denies ear pain, rhinorrhea or sore throat Cardiovascular Cardiovascular: Denies chest pain, orthopnea, palpitations or racing heartbeat Respiratory/Chest Respiratory/Chest: Denies cough, dyspnea or orthopnea Gastrointestinal Gastrointestinal: Denies abdominal pain, diarrhea, nausea or vomiting Genitourinary Genitourinary ED: Reports other Details: See HPI ; Denies dysuria, hematuria or urinary frequency Musculoskeletal Musculoskeletal: Denies arthralgias or myalgias Integumentary Denies abscess or rash Neurologic Neurologic: Denies headache(s) or weakness Psychiatric Psychiatric: Denies anxiety, depression, suicidal ideation or suicidal thoughts Endocrine Endocrinology: Denies polydipsia, polyphagia or polyuria Allergic/Immunologic Allergic/Immunologic ED: Denies mouth swelling, tongue swelling or urticaria EXAM Physical Exam Const Vital Signs: 05/08/23 18:43 Temperature 98 F Temperature Source Temporal Pulse Rate 87 Respiratory Rate 18 Blood Pressure 105/71 Blood Pressure Mean 82 Pulse Ox 96 Oxygen Delivery Method Room Air Positive well nourished and well developed General Appearance ED: well developed HEENT Reports normocephalic, head/scalp atraumatic and moist mucous membranes Eyes PERRL and EOMs intact bilaterally Neck no lymphadenopathy, supple and no JVD Resp normal respiratory effort and clear to auscultation bilaterally Cardio regular rate, regular rhythm and no murmurs GI normal to inspection, nondistended, normoactive bowel sounds and non-tender Palpation: soft Narrative: Pelvic examination was performed in the presence of female nurse. I do not see any active bleeding. There is some grayish material and clot around the cervix. There are no clots. No bleeding coming out of the cervix. Back/Spine no CVA tenderness and normal ROM Extremity normal to inspection General Extremety ED: Negative for edema General Extremity: Negative for edema Neuro oriented x3 and CN's II-XII intact bilaterally Sensorium / Orientation: alert Motor Exam: strength 5/5 throughout Psych mental status grossly normal Mood & Affect: Negative for depressed or tearful Skin no rashes or lesions noted and no wounds MDM MDM MDM Narrative Medical decision making narrative: Bedside ultrasound performed by this physician shows a heart rate of 147. Single live intrauterine was noted. No pelvic free fluid seen. I do not believe that despite the patient being Rh- she needs RhoGAM as I do not believe there is any blood present. I spoke with the patient regarding obtaining a formal ultrasound at this time as she is not having any active bleeding what she saw in the bathroom is most likely from the cervical biopsy. She will follow-up with her CONDITIONING ROOM WORKER tomorrow. Return if worsening or concerns Lab Data Labs: Laboratory Results - last 24 hr 05/08/23 20:45 Blood Type B NEGATIVE Discharge Plan Triage Chief Complaint: Female C/O ED Provider: Haider Aparicio Dx/Rx/DC Orders Clinical Impression: Vaginal bleeding, Second trimester Prescriptions: No Action PNV cmb#95-ferrous fumarate-FA [] 28 mg iron- 800 mcg tablet 1 tab PO DAILY Primary Care Provider: Clarisa Galvan Referrals: Clarisa Galvan DO [Primary Care Provider] - Activity Restrictions/Additional Instructions: Please continue to monitor for any changes and contact your CONDITIONING ROOM WORKER. I would recommend you call your CONDITIONING ROOM WORKER in the morning. Please monitor for any bright red bleeding or increasing pain. Disposition Disposition: Home, Self Care Discharge Date/Time: 05/08/23 21:13
== END 2023-05-08 21:13 | disposition home or self-care (01) ==
PROVIDERS: Emergency Provider Emergency Medicine; PCP Family Medicine; Visit Provider Emergency Medicine
DX: O20.9 Hemorrhage in early pregnancy, unspecified (principal); Z87.891 Personal history of nicotine dependence; Z3A.13 13 weeks gestation of pregnancy
CPT/HCPCS: 86900; 86901; 99282; A4216